=== PATIENT | female | born 1965 | race African-American/Black ===

== ENCOUNTER 2020-01-26 12:54 | Emergency (ER) | payer OTHER ==
[~2020-01-26] VITALS: Ht 175.3 cm; Wt 90.0 kg
[2020-01-26 16:28] VITALS: BP 114/68
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
[2020-01-26] MEDS ORDERED: DICL50TA2 PO (17:18)
[2020-01-26] MEDS ORDERED: CYCL10TA2 PO (17:18)
== END 2020-01-26 17:44 | disposition home or self-care (01) ==
LOC: ER 12:54
DX: M54.5 Low back pain (principal); R51.9 Headache, unspecified; G89.11 Acute pain due to trauma; I10 Essential (primary) hypertension; V46.4XXA Person boarding or alighting a car injured in collision with other nonmotor vehicle, initial encounter; Y92.488 Other paved roadways as the place of occurrence of the external cause; Y93.89 Activity, other specified; Y99.8 Other external cause status
CPT/HCPCS: 72100; 99283